=== PATIENT | male | born 1960 | race Caucasian/White ===

== ENCOUNTER 2018-08-12 09:43 | Inpatient (IN) | payer BC ==
[~2018-08-12 09:43] MED LIST: CEFAZOLIN 1 GM INJ; CEFAZOLIN 2 GM/50 ML (PMX) 50 ML IVPB; DEXAMETHASONE 4 MG/ML 5 ML INJ; LACTATED RINGER'S 1,000 ML IV*; METOCLOPRAMIDE 10 MG INJ; METOPROLOL 5 MG INJ
[2018-08-12] MEDS ORDERED: MIDAZOLAM 1 MG/ML 2 ML INJ (09:51)
[2018-08-12] MEDS ORDERED: FENTAnyl 50 MCG/ML VIAL (09:51)
[2018-08-12] MEDS ORDERED: PROPOFOL 20 ML (09:52)
[2018-08-12] MEDS ORDERED: ONDANSETRON 4 MG INJ (09:54)
[2018-08-12] MEDS ORDERED: IPRATROPIUM (NEB) 0.5 MG/2.5 ML AMP HHN (11:00)
[2018-08-12] MEDS ORDERED: LABETALOL HCL 20MG INJ IV (11:00)
[2018-08-12] MEDS ORDERED: LEVALBUTEROL (NEB) 1.25 MG/0.5 ML AMP HHN (11:00)
[2018-08-12] MEDS ORDERED: DIPHENHYDRAMINE 50 MG INJ IV (11:00)
[2018-08-12] MEDS ORDERED: ONDANSETRON 4 MG INJ IV ×2 (11:00→15:00)
[2018-08-12] MEDS ORDERED: MEPERIDINE 25 MG INJ IV (11:00)
[2018-08-12] MEDS ORDERED: HYDROmorphONE 1 MG/5 ML IV SYRINGE IV ×2 (11:00)
[2018-08-12] MEDS ORDERED: FENTAnyl 50 MCG/ML VIAL IV ×2 (11:00)
[2018-08-12] MEDS: HEMOSTATIC MATRIX SYG ZFS ×2 (12:34→15:01)
[2018-08-12] MEDS ORDERED: THROMBIN 5000 UNIT VIAL (13:29)
[2018-08-12] MEDS ORDERED: SUCCINYLCHOLINE CHLORIDE 100 MG/5 ML SYG IV (13:51)
[2018-08-12] MEDS ORDERED: LIDOCAINE 2% (SDV) 5 ML INJ (13:51)
[2018-08-12] MEDS ORDERED: HYDROmorphONE 2 MG/ML SYG (13:51)
[2018-08-12] MEDS ORDERED: ROCURONIUM 50 MG INJ (13:51)
[2018-08-12] MEDS: POLYMYXIN/BACITRACIN 1L IRRIG (15:00)
[2018-08-12] MEDS ORDERED: NALOXONE (0.4 MG/ML) INJ IV (15:00)
[2018-08-12] MEDS: BUPIVACAINE 0.5%/EPI (SDV) 30 ML INJ (15:00)
[2018-08-12] MEDS ORDERED: NACL 0.9% 3 ML SYG IV (15:00)
[2018-08-12] MEDS: GELATIN SIZE 100 SPONGE (15:00)
[2018-08-12] MEDS ORDERED: PROCHLORPERAZINE 10 MG TAB PO (15:00)
[2018-08-12] MEDS ORDERED: AL HYDROX/MG HYDROX/SIMETH 30 ML CUP PO (15:00)
[2018-08-12] MEDS: THROMBIN 5000 UNIT VIAL ×2 (15:00)
[2018-08-12] MEDS ORDERED: ACETAMINOPHEN 325 MG TAB PO (15:00)
[2018-08-12] MEDS: hydrALAzine 20 MG INJ IV (15:16)
[2018-08-12] MEDS: HYDROmorphONE 1 MG/5 ML IV SYRINGE IV (15:17)
[2018-08-12] MEDS: HYDROmorphONE 0.5 MG/0.5 ML SYG IV ×2 (16:55→21:08)
[2018-08-12] MEDS ORDERED: DEXTROSE 50% 50 ML SYRINGE IV ×2 (17:30)
[2018-08-12] MEDS ORDERED: GLUCAGON 1 MG INJ IM (17:30)
[2018-08-12] MEDS ORDERED: GLUCOSE GEL 15 GRAM TUBE BUCCAL (17:30)
[2018-08-12] MEDS ORDERED: GLUCOSE GEL 15 GRAM TUBE PO ×2 (17:30)
[2018-08-12] MEDS: SOD CHLORIDE 0.9% 1,000 ML IV (17:32)
[2018-08-12] MEDS: CEFAZOLIN 1 GM/50 ML (PMX) 50 ML IVPB (17:58)
[2018-08-12] MEDS: HYDROCODONE/APAP (5/325) TAB PO ×2 (18:08→22:00)
[2018-08-12] MEDS: metFORMIN 500 MG TAB PO (18:09)
[2018-08-12] MEDS: INSULIN ASPART [NOVOLOG] 3 ML PEN SC (18:19)
[2018-08-12] MEDS: ATORVASTATIN 40 MG TAB PO (21:01)
[2018-08-12] MEDS: INSULIN GLARGINE [LANTus] (100 UNITS/ML) SYG SC (21:07)
[2018-08-13] MEDS: SOD CHLORIDE 0.9% 1,000 ML IV ×3 (00:09→23:23)
[2018-08-13] MEDS: CEFAZOLIN 1 GM/50 ML (PMX) 50 ML IVPB ×3 (00:09→11:15)
[2018-08-13] MEDS: ACCU-CHEK XX (02:00)
[2018-08-13] MEDS: HYDROmorphONE 0.5 MG/0.5 ML SYG IV (02:50)
[2018-08-13] MEDS: HYDROCODONE/APAP (5/325) TAB PO ×6 (04:16→23:22)
[2018-08-13 05:48] LABS: HEMATOCRIT 36.4 % (42.0-52.0); HEMOGLOBIN 11.8 g/dl (14.0-18.0)
[2018-08-13 06:10] LABS: PHOSPHORUS 3.2 mg/dl (2.5-4.9)
[2018-08-13 06:10] LABS: MAGNESIUM 1.6 mg/dl (1.7-2.5)
[2018-08-13 06:26] LABS: ANION GAP 12 (5-13); BLOOD UREA NITROGEN 19 mg/dl (7-20); CALCIUM 8.5 mg/dl (8.4-10.2); CARBON DIOXIDE 26 mmol/L (21-31); CHLORIDE 103 mmol/L (97-110); CREATININE 0.76 mg/dl (0.61-1.24); Estimated GFR > 60 mL/min (>60); GLUCOSE 176 mg/dl (70-220); POTASSIUM 4.5 mmol/L (3.5-5.1); SODIUM 141 mmol/L (135-144)
[2018-08-13] MEDS: metFORMIN 500 MG TAB PO ×2 (08:28→17:59)
[2018-08-13] MEDS: DOCUSATE SODIUM 100 MG CAP PO ×2 (08:28→20:05)
[2018-08-13] MEDS: HYDROmorphONE 1 MG/ML SYG IV ×4 (08:28→20:03)
[2018-08-13] MEDS: AMLODIPINE 5 MG TAB PO (08:29)
[2018-08-13] MEDS: INSULIN ASPART [NOVOLOG] 3 ML PEN SC ×3 (08:39→18:01)
[2018-08-13] MEDS ORDERED: HYDROmorphONE 1 MG/ML SYG IV (09:00)
[2018-08-13] MEDS: METHOCARBAMOL 500 MG TAB PO ×2 (09:14→16:54)
[2018-08-13] MEDS: MAGNESIUM SULFATE 3 GM in DEXTROSE 5% 100 ML IVPB (12:12)
[2018-08-13] MEDS: ATORVASTATIN 40 MG TAB PO (20:05)
[2018-08-13] MEDS: INSULIN GLARGINE [LANTus] (100 UNITS/ML) SYG SC (20:08)
[2018-08-14] MEDS: HYDROmorphONE 1 MG/ML SYG IV ×3 (00:02→08:54)
[2018-08-14] MEDS: ACCU-CHEK XX (02:00)
[2018-08-14] MEDS: HYDROCODONE/APAP (5/325) TAB PO ×3 (05:24→14:27)
[2018-08-14 05:35] LABS: ADD MAN DIFF? NO
[2018-08-14 05:41] LABS: BASOPHILS % 0.2 % (0.0-2.0); EOSINOPHILS % 0.3 % (0.0-7.0); HEMATOCRIT 36.2 % (42.0-52.0); HEMOGLOBIN 11.8 g/dl (14.0-18.0); LYMPHOCYTES # 2.4 10^3/ul (0.8-2.9); LYMPHOCYTES % 19.7 % (15.0-51.0); MEAN CORPUSCULAR HEMOGLOBIN 28.5 pg (29.0-33.0); MEAN CORPUSCULAR HGB CONC 32.6 g/dl (32.0-37.0); MEAN CORPUSCULAR VOLUME 87.4 fl (82.0-101.0); MEAN PLATELET VOLUME 11.9 fl (7.4-10.4); MONOCYTE # 1.2 10^3/ul (0.3-0.9); MONOCYTES % 10.1 % (0.0-11.0); NEUTROPHIL # 8.3 10^3/ul (1.6-7.5); NEUTROPHILS % 69.4 % (39.0-77.0); PLATELET COUNT 193 10^3/UL (140-415); RED BLOOD COUNT 4.14 10^6/ul (4.70-6.10); RED CELL DISTRIBUTION WIDTH 12.6 % (11.5-14.5)
[2018-08-14 06:15] LABS: ANION GAP 11 (5-13); BLOOD UREA NITROGEN 15 mg/dl (7-20); CALCIUM 8.1 mg/dl (8.4-10.2); CARBON DIOXIDE 29 mmol/L (21-31); CHLORIDE 100 mmol/L (97-110); CREATININE 0.76 mg/dl (0.61-1.24); Estimated GFR > 60 mL/min (>60); GLUCOSE 183 mg/dl (70-220); MAGNESIUM 1.8 mg/dl (1.7-2.5); POTASSIUM 4.4 mmol/L (3.5-5.1); SODIUM 140 mmol/L (135-144)
[2018-08-14] MEDS: METHOCARBAMOL 500 MG TAB PO (08:54)
[2018-08-14] MEDS: AMLODIPINE 5 MG TAB PO (08:55)
[2018-08-14] MEDS: DOCUSATE SODIUM 100 MG CAP PO (08:55)
[2018-08-14] MEDS: INSULIN ASPART [NOVOLOG] 3 ML PEN SC ×2 (08:56→12:58)
[2018-08-14] MEDS: metFORMIN 500 MG TAB PO (09:00)
[2018-08-14] MEDS: SODIUM PHOSPHATE 20 MEQ in SOD CHLORIDE 0.9% 250 ML IVPB (10:01)
[2018-08-14] MEDS ORDERED: INSULIN GLARGINE [LANTus] (100 UNITS/ML) SYG SC (20:00)
== END 2018-08-14 17:05 | disposition home or self-care (01) | DRG 520 ==
LOC: SDS 09:43 → REC 14:50 → MS1 16:24
PROVIDERS: Orthopaedic Surgery
PROC: 01NB0ZZ Release Lumbar Nerve, Open Approach (ICD-10-PCS; principal; 2018-08-12 11:04)
PROC: 00BY0ZZ Excision of Lumbar Spinal Cord, Open Approach (ICD-10-PCS; 2018-08-12 11:04)
DX: M43.16 Spondylolisthesis, lumbar region (principal); M51.16 Intervertebral disc disorders with radiculopathy, lumbar region; M71.38 Other bursal cyst, other site; E11.9 Type 2 diabetes mellitus without complications; I10 Essential (primary) hypertension; E66.9 Obesity, unspecified; Z68.31 Body mass index [BMI] 31.0-31.9, adult
CPT/HCPCS: 72100; 80048; 82962; 83735; 84100; 85014; 85018; 85025; 88304; 88311; 93971; 97110; 97116; 97161; 97530